=== PATIENT | male | born 1945 | race Caucasian/White ===

== ENCOUNTER → 2018-06-15 | Outpatient (CLI) | payer OTHER ==
[~2018-06-15] MED LIST: DIOVAN320 MG; IRBESARTAN-HCT1 EAC1; LEVAQUIN750 MG PO; METFORMIN HCL500 MG; TAMS0.4C
== END | disposition home or self-care (01) ==
LOC: NUCLEAR 10:00
DX: I89.0 Lymphedema, not elsewhere classified (principal)

== ENCOUNTER 2018-09-06 14:34 | Outpatient (CLI) | payer OTHER | END 2018-09-06 16:20 | disposition home or self-care (01) | LOC: LAB 14:34 | DX: Z00.8 Encounter for other general examination (principal) ==

== ENCOUNTER 2018-09-28 13:51 | Outpatient (CLI) | payer OTHER | END 2018-09-28 13:56 | disposition home or self-care (01) | LOC: NUCLEAR 13:51 | DX: I73.9 Peripheral vascular disease, unspecified (principal) ==

== ENCOUNTER 2018-10-05 08:53 | Outpatient (CLI) | payer OTHER | END 2018-10-05 09:00 | disposition home or self-care (01) | LOC: TOM 08:53 | DX: K65.1 Peritoneal abscess (principal); R10.84 Generalized abdominal pain; R10.10 Upper abdominal pain, unspecified | CPT/HCPCS: 74160; Q9965 ==

== ENCOUNTER 2018-12-19 12:48 | Emergency (ER) | payer OTHER ==
[~2018-12-19] VITALS: Ht 177.8 cm; Wt 83.9 kg
[2018-12-19] MEDS ORDERED: XARELTO15 MG (13:22)
== END 2018-12-19 14:26 | disposition home or self-care (01) ==
LOC: ER 12:48
DX: K62.5 Hemorrhage of anus and rectum (principal)

== ENCOUNTER 2019-09-21 11:51 | Emergency (ER) | payer OTHER ==
[~2019-09-21] VITALS: Ht 177.8 cm; Wt 80.7 kg
[~2019-09-21 11:51] MED LIST changes: +XARELTO15 MG
[2019-09-21] MEDS ORDERED: NORVASC5 MG (12:35)
[2019-09-21] MEDS ORDERED: LEVAQUIN750 MG PO (16:41)
== END 2019-09-21 18:20 | disposition home or self-care (01) ==
LOC: ER 11:51
DX: N39.0 Urinary tract infection, site not specified (principal); N43.2 Other hydrocele

== ENCOUNTER 2019-10-03 13:56 | Emergency (ER) | payer OTHER ==
[~2019-10-03] VITALS: Ht 177.8 cm; Wt 86.2 kg
[~2019-10-03 13:56] MED LIST changes: +NORVASC5 MG
== END 2019-10-04 00:50 | disposition designated cancer center or children's hospital (05) ==
LOC: ER 13:56
DX: J90 Pleural effusion, not elsewhere classified (principal); J98.19 Other pulmonary collapse; I31.3 Pericardial effusion (noninflammatory); I27.29 Other secondary pulmonary hypertension; N39.0 Urinary tract infection, site not specified; B95.7 Other staphylococcus as the cause of diseases classified elsewhere; Z03.818 Encounter for observation for suspected exposure to other biological agents ruled out